=== PATIENT | female | born 1955 | race Caucasian/White ===

== ENCOUNTER → 2019-05-30 | Outpatient (CLI) | payer MEDICAID, MEDICARE, OTHER ==
[~2019-05-30] MED LIST: GADOTERATE 7.5 MMOL/15ML VIAL. IVP ONE; IBUP-1060 PO; LEVO25TA4 PO; LISI-338 PO; METF500T16 PO; PREG200C PO; TAPE50TA10 PO; VENTOLIN HFA18 GM INH
--- NOTE | 2019-05-30 12:46 | KCIC ---
MRI of the neck without and with contrast 05/30/2019 CLINICAL HISTORY: History of thyroid cancer in 2010. TECHNIQUE: Unenhanced T1-weighted sagittal and axial, fat saturated T2-weighted coronal, inversion recovery coronal, T2-weighted axial and fat saturated T2-weighted axial images of the neck were obtained. After the intravenous administration of 14 cc of DOTAREM, enhanced fat saturated T1-weighted sagittal, axial and coronal images of the neck were obtained. FINDINGS: Comparison is made to the patient's ultrasound of the neck dated 04/18/2019. Additional comparison is made to a CT scan of the neck dated 03/02/2016. The mucosal structures of the nasopharynx, oropharynx, hypopharynx and larynx are within normal limits. The parotid and submandibular glands are within normal limits. Slightly prominent likely reactive lymph nodes are seen posterior to the right submandibular gland which measures 1 to 1.3 cm in size. No cervical lymphadenopathy is seen. The patient is post right thyroidectomy. An oval-shaped low signal intensity nodule seen involving the left lobe of thyroid gland which measures 1.1 cm in greatest diameter. This corresponds to the nodule seen on the patient's ultrasound. Its MRI appearance is nonspecific. It was felt to be benign on ultrasound. The smaller lesions seen within the left lobe of thyroid gland on the patients recent ultrasound are not well-visualized on MRI due to their small size. Mild lateral curvature of the cervical spine is seen convex to the left. Degenerative changes are seen involving the uncovertebral and facet joints throughout the mid and lower cervical disc spaces. IMPRESSION: 1. Post right thyroidectomy. A 1.1 cm oval-shaped low signal intensity lesion is seen involving the left lobe of the thyroid gland which corresponds to the largest nodule seen on the patient's recent ultrasound. Its MRI appearance is nonspecific. On ultrasound was felt to most likely be benign. The patient's known smaller nodules are not well evaluated on MRI. 2. No cervical lymphadenopathy is seen. Electronically signed by: Geovany Asif MD (05/30/2019 12:43 PM) [id number]
== END | disposition home or self-care (01) ==
LOC: KCIC MRI 09:45
PROVIDERS: ATTEND General Practice
DX: E04.1 Nontoxic single thyroid nodule (principal); J04.0 Acute laryngitis; J45.909 Unspecified asthma, uncomplicated; I10 Essential (primary) hypertension; E11.9 Type 2 diabetes mellitus without complications; Z90.89 Acquired absence of other organs; Z85.850 Personal history of malignant neoplasm of thyroid
CPT/HCPCS: 70543; 82565; A9575